=== PATIENT | male | born 1955 | race Caucasian/White ===

== ENCOUNTER 2016-04-17 13:55 | Emergency (ER) | payer BC, MEDICARE ==
[2016-04-17 15:36] VITALS: BP 131/91
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
== END 2016-04-17 15:59 | disposition home or self-care (01) ==
LOC: UCEAST 13:55
DX: J01.90 Acute sinusitis, unspecified (principal); Z88.0 Allergy status to penicillin
CPT/HCPCS: 99212; G0463